=== PATIENT | female | born 1960 | race Caucasian/White ===

== ENCOUNTER 2017-01-24 19:16 | Emergency (ER) | payer OTHER ==
[~2017-01-24] VITALS: Ht 161.3 cm; Wt 111.2 kg
[2017-01-24 19:23] VITALS: TEMP 36.6; Ht 161.3 cm; Wt 111.2 kg
--- NOTE | 2017-01-24 19:41 | EMERGENCY ROOM VISIT NOTE ---
History Report prepared by Mo: Alejandra Carcamo Under the Supervision of: Dr. Raudel Buckley M.D. First contact with patient: 19:28 Chief Complaint: GI ASSESSMENT Stated Complaint: CHOKED ON FOOD, VOMITED BLOOD, SORE THROAT History of Present Illness The patient is a 56 year old female who presents to the Emergency Room with complaints of gastrointestinal problems occurring shortly prior to arrival. The patient states that she was eating dinner, ate a large piece of fish, went to take a drink to help swallow and tried to cough up the food. A friend performed the Heimlich maneuver on her and went she went to vomit, she threw up blood. The patient states that the blood did not fill up the toilet bowl. She now complains that it is painful to swallow but is not having any abdominal pain. She reports that she is not on any blood thinners. Source of History: patient Onset: prior to arrival Position: abdomen (GI problems) Quality: other (choking) Associated Symptoms: + vomiting (blood), No abdominal pain Review of Systems See HPI for pertinent positives & negatives. A total of 10 systems reviewed and were otherwise negative. Past Medical & Surgical Medical Problems: (1) Hypertension (2) Pneumonia Family History Diabetes mellitus FH: lung disease FHx: cancer FHx: heart disease Hypertension Social History Smoking Status: Never Smoker Marital Status: Housing Status: lives with significant other Current/Historical Medications Scheduled Duloxetine Hcl (Cymbalta), 60 MG PO DAILY Levothyroxine Sodium (Synthroid), 50 MCG PO DAILY Telmisartan-Hydrochlorothiazid (Micardis Hct 80MG/12.5MG), 1 TAB PO DAILY Vitamin B Cmplx/Vitc/Folic Ac (Nephrocaps), 1 CAP PO DAILY Vitamin E (Vitamin E 400 Iu), 400 INTER.UNIT PO DAILY Scheduled PRN Ibuprofen (Advil), 400-800 MG PO Q6H PRN for Headache or Pain Allergies Coded Allergies: Penicillins (Verified Allergy, Mild, Hives, 01/24/17) Physical Exam Vital Signs Date Time Temp Pulse Resp B/P (MAP) Pulse Ox O2 Delivery O2 Flow Rate FiO2 01/24/17 21:11 84 16 136/100 94 01/24/17 19:23 36.6 84 20 159/84 96 Room Air Physical Exam GENERAL: Patient is well appearing and in minimal distress. HEENT: No acute trauma, normocephalic atraumatic, mucous membranes moist, no nasal congestion, no scleral icterus. NECK: No stridor, no adenopathy, no meningismus, trachea is midline. LUNGS: No dyspnea. Clear to auscultation and equal bilaterally. No wheeze, no rhonchi. HEART: Regular rate and rhythm. No murmurs, rubs, gallops appreciated. ABDOMEN: Soft, nontender, bowel sounds positive, no masses appreciated, no peritonitis. BACK: No midline tenderness, no CVA tenderness EXTREMITIES: Normal motion all extremities, no cyanosis, no edema. NEUROLOGIC: Alert and oriented, no acute motor or sensory deficits, no focal weakness, cranial nerves grossly intact. SKIN: No rash, no jaundice, no diaphoresis. Medical Decision & Procedures ER Provider Diagnostic Interpretation: X ray results are stated below per my interpretation and the radiologist's interpretation. CHEST ONE VIEW PORTABLE CLINICAL HISTORY: Food bolus CHOKING EPISODE. VOMITING BLOOD. COMPARISON STUDY: No previous studies for comparison. FINDINGS: The cardiac and mediastinal contours are normal. There is no evidence of focal pulmonary consolidation. There is no evidence of failure. No pleural effusions are visualized.[ No pneumomediastinum is visualized. There is no pneumothorax. IMPRESSION: No active disease in the chest. Electronically signed by: Josh Herrera M.D. 01/24/2017 8:16 PM Dictated Date/Time: 01/24/2017 8:15 PM Medications Administered Medications (Trade) Dose Ordered Sig/Timoteo Route Start Time Stop Time Status Last Admin Dose Admin Ranitidine HCl (zANTac SYRUP) 150 mg NOW ONCE PO 01/24/17 19:45 01/24/17 19:46 DC 01/24/17 19:47 150 MG Lidocaine HCl (Viscous Lidocaine 2% Soln) 20 ml STK-MED ONCE .ROUTE 01/24/17 19:45 01/24/17 19:46 DC 01/24/17 19:47 20 ML Al Hydroxide/Mg Hydroxide (Maalox Susp) 30 ml STK-MED ONCE .ROUTE 01/24/17 19:45 01/24/17 19:46 DC 01/24/17 19:47 30 ML Pantoprazole Sodium (Protonix Tab) 40 mg NOW STAT PO 01/24/17 20:53 01/24/17 20:54 DC 01/24/17 21:10 40 MG ED Course 1928: The patient was evaluated in room C4. A complete history and physical exam was performed. 1941: Ordered Gi Cocktail 24 ml PO. 1944: Ordered Maalox Susp 30 ml, Lidocaine HCl 20 ml, Ranitidine HCl 150 mg PO. 2026: The patient is feeling better but does have a sore throat when she swallows. 2033: Discussed the patient's case with Dr. Fletcher. The patient will be evaluated for further treatment and disposition. 2052: Ordered Pantoprazole Sodium 40 mg PO. 2054: The patient is happy with the plan and will follow up with Dr. Fletcher or his colleague in the morning. 2099: Reevaluated the patient. Discussed results and discharge instructions: She verbalized understanding and agreement. The patient is ready for discharge. Medical Decision Blood pressure screening: Patient was found to have an elevated blood pressure and was referred to their primary doctor for recheck and further treatment. Medication Reconciliation: I attest that I have personally reviewed the patient 's current medication list. 56 yr old pleasant female with what sounds like she has been dealing with esophageal stricture for quite some time. Tonight with food stuck in esophagus and apparently required hymlic to remove it. Denies any respiratory issues with this. Admits afterwards she vomited a globul of blood, not filling toilet. Continued vague discomfort though no respiratory issues nor severe pain. No further vomiting. Denies black/bloody stools. Denies blood thinner use. GI cocktail with some improvement. Zantac and Protonix given. Xray without pleural effusion nor evidence of mediastinal air. She is stable and in no distress. I discussed with GI and plan to do endoscopy tomorrow. As stable patient prefers to have this done as outpatient which I think is reasonable and GI on board with this. Patient prefers not to have obs status in hospital to have endoscopy done. Reviewed at length symptoms requiring return. Patient comfortable with plan. Case Management asked to follow up to make sure things go smoothly tomorrow. Consults Time Called: 2014 Consulting Physician: Dr. Fletcher Returned Call: [phone] Discussed the patient's case. The patient will be evaluated for further treatment and disposition. Impression Primary Impression: Esophageal obstruction due to food impaction Additional Impression: Lynn-Duran tear Scribe Attestation The scribe's documentation has been prepared under my direction and personally reviewed by me in its entirety. I confirm that the note above accurately reflects all work, treatment, procedures, and medical decision making performed by me. Departure Information Dispostion Home / Self-Care Referrals Rafita Fletcher MD Patient Instructions My [facility] Additional Instructions Follow up Dr Fletcher of Gastroenterology tomorrow with plan for Endoscopy. Call his office in the morning to determine which time you will be going there. [phone] Do not eat or drink anything after midnight tonight. Return immediately if increased pain, vomiting, passing out, fevers or other concerns. Problem Qualifiers
[2017-01-24] MEDS ORDERED: GI COCKTAIL PO STA (19:42)
[2017-01-24] MEDS ORDERED: RANITIDINE HCL SYRUP 150 MG/10 ML UDC PO ONE (19:45)
[2017-01-24] MEDS ORDERED: ALUMINUM/MAGNESIUM SUSP 30 ML UDC ONE (19:45)
[2017-01-24] MEDS ORDERED: LIDOCAINE HCL 2% VISC SOLN 20 ML UDC ONE (19:45)
[2017-01-24] MEDS ORDERED: VITA400C3 PO (20:08)
[2017-01-24] MEDS ORDERED: TELM80TA4 PO (20:08)
[2017-01-24] MEDS ORDERED: DULO60CA44 PO (20:08)
[2017-01-24] MEDS ORDERED: LEVO50TA PO (20:08)
[2017-01-24] MEDS ORDERED: IBUP-1050 PO (20:08)
[2017-01-24] MEDS ORDERED: B-CO1CAP17 PO (20:08)
--- NOTE | 2017-01-24 20:17 | DIAGNOSTIC IMAGING REPORT ---
CHEST ONE VIEW PORTABLE CLINICAL HISTORY: Food bolus CHOKING EPISODE. VOMITING BLOOD. COMPARISON STUDY: No previous studies for comparison. FINDINGS: The cardiac and mediastinal contours are normal. There is no evidence of focal pulmonary consolidation. There is no evidence of failure. No pleural effusions are visualized.[ No pneumomediastinum is visualized. There is no pneumothorax. IMPRESSION: No active disease in the chest. Electronically signed by: Josh Herrera M.D. 01/24/2017 8:16 PM Dictated Date/Time: 01/24/2017 8:15 PM
[2017-01-24] MEDS ORDERED: PANTOprazole SOD 40 MG TAB PO STA (20:53)
[2017-01-24 21:11] VITALS: BP 136/100; PULSE 84; O2SAT 94
[2017-01-25] MEDS ORDERED: LIDOCAINE HCL 2% 2 ML VIAL (20MG/ML) ONE (11:02)
[2017-01-25] MEDS ORDERED: PROPOFOL IV EMULSION 10 MG/ML 20 ML VIAL IV ONE (11:02)
== END 2017-01-24 21:12 | disposition home or self-care (01) ==
LOC: C.EDB 19:20 → C.EDC 21:12
DX: T18.128A Food in esophagus causing other injury, initial encounter (principal); K22.6 Gastro-esophageal laceration-hemorrhage syndrome; X58.XXXA Exposure to other specified factors, initial encounter; I10 Essential (primary) hypertension; Z87.01 Personal history of pneumonia (recurrent); Z83.3 Family history of diabetes mellitus; Z80.9 Family history of malignant neoplasm, unspecified; Z82.49 Family history of ischemic heart disease and other diseases of the circulatory system; Z79.899 Other long term (current) drug therapy

== ENCOUNTER → 2017-01-25 | Day surgery (SDC) | payer OTHER ==
[~2017-01-25] VITALS: Ht 161.3 cm; Wt 108.2 kg
[~2017-01-25] MED LIST: B-CO1CAP17 PO; DULO60CA44 PO; IBUP-1050 PO; LEVO50TA PO; LIDOCAINE HCL 2% 2 ML VIAL (20MG/ML) INFIL ONE; PROPOFOL IV EMULSION 10 MG/ML 20 ML VIAL IV ONE; SODIUM CHLORIDE 0.9% 500ML 500 ML IV ONE; TELM80TA4 PO; VITA400C3 PO
[2017-01-25 10:32] VITALS: Ht 161.3 cm; Wt 108.2 kg
--- NOTE | 2017-01-25 11:04 | Endo History and Physical ---
History & Physical Date of Service: Jan 25, 2017. Chief Complaint: dysphagia Referring Physician: Emily History of Present Illness Food bolus impaction, cleared spontaneously. Five year history of intermittent dysphagia for solids. Past Surgical History Hx Cardiac Surgery: No Hx Internal Defibrillator: No Hx Pacemaker: No Hx Abdominal Surgery: No Hx of Implantable Prosthesis: No Hx Post-Op Nausea and Vomiting: No Hx Cancer Surgery: Yes (breast lumpectomy) Hx Thoracic Surgery: No Hx Orthopedic: No Hx Urinary Tract Surgery: No Family History Polyp Social History Smoking Status: Never Smoker Hx Substance Use: No Hx Alcohol Use: Yes (occassional) Allergies Coded Allergies: Penicillins (Verified Allergy, Mild, Hives, 01/25/17) Current Medications Reported Home Medications Medications Dose Route/Sig Max Daily Dose Days Date Category Vitamin E 400 Iu (Vitamin E) 400 Unit Cap 400 Inter.unit PO DAILY 01/24/17 Reported Nephrocaps (Vitamin B Complex/Vit C/Folic Acid) Cap 1 Cap PO DAILY 90 01/24/17 Reported Advil (Ibuprofen) 200 Mg Tab 400-800 Mg PO Q6H PRN 01/24/17 Reported Cymbalta (Duloxetine Hcl) 60 Mg Cap 60 Mg PO DAILY 01/24/17 Reported Synthroid (Levothyroxine Sodium) 50 Mcg Tab 50 Mcg PO DAILY 01/24/17 Reported Micardis Hct 80MG/12.5MG (Telmisartan-Hydrochlorothiazid) 1 Tab Tab 1 Tab PO DAILY 01/24/17 Reported Vital Signs Weight (Kilograms): 108.18 Height (Feet): 5 Height (Inches): 3.5 Date Time Temp Pulse Resp B/P (MAP) Pulse Ox O2 Delivery O2 Flow Rate FiO2 01/25/17 10:51 37.4 82 18 103/56 (72) 93 Room Air Physical Exam General Appearance: WD/WN, no apparent distress Respiratory/Chest: Auscultation: breath sounds normal, no wheezing Cardiovascular: Heart Auscultation: RRR, no murmurs Abdomen: Inspection & Palpation: soft, no tenderness, guarding & rebound Assessment and Plan EGD with possible dilation.
--- NOTE | 2017-01-25 11:40 | GI REPORT ---
Procedure Date: 01/25/2017 11:14 AM Procedure: Upper GI endoscopy Indications: Dysphagia Patient Profile: This is a 56 year old female with intermittent dysphagia for solids for five years, presented to ED last night with food bolus impaction that she was able to retch up. She noted blood with the bolus. No recent hearburn. Medicines: Monitored Anesthesia Care Complications: No immediate complications. Estimated blood loss: None. Estimated Blood Loss: Estimated blood loss: none. Procedure: Pre-Anesthesia Assessment: - Prior to the procedure, a History and Physical was performed, and patient medications, allergies and sensitivities were reviewed. The patient's tolerance of previous anesthesia was reviewed. - ASA Grade Assessment: II - A patient with mild systemic disease. After obtaining informed consent, the endoscope was passed under direct vision. Throughout the procedure, the patient's blood pressure, pulse, and oxygen saturations were monitored continuously. The scope was introduced through the mouth, and advanced to the third part of duodenum. The upper GI endoscopy was accomplished with ease. The patient tolerated the procedure well. Findings: One linear esophageal ulcer with no bleeding and no stigmata of recent bleeding was found 26 to 32 cm from the incisors. One moderate benign-appearing, intrinsic stenosis was found in the lower third of the esophagus. This measured 3 cm (in length) and was traversed. A guidewire was placed and the scope was withdrawn. Dilation was performed with an [place] dilator with mild resistance at 45 Fr. Biopsies were taken with a cold forceps for histology. The Z-line was regular and was found 40 cm from the incisors. A small hiatus hernia was present. The stomach was normal. The examined duodenum was normal. Impression: - Non-bleeding esophageal ulcer. - Benign-appearing esophageal stenosis. Dilated. Biopsied. - Z-line regular, 40 cm from the incisors. - Small hiatus hernia. - Normal stomach. - Normal examined duodenum. Recommendation: - Use Prilosec (omeprazole) 20 mg PO BID. - Repeat the upper endoscopy in 6 weeks to check healing and for retreatment. - Discharge patient to home (with escort). Lazarus Pollard M.D. Lazarus Pollard MD 01/25/2017 11:39:00 AM This report has been signed electronically. Note Initiated On: 01/25/2017 11:14 AM I attest to the content of the Intraoperative Record and orders documented therein, exceptions below
--- NOTE | 2017-01-25 11:48 | Discharge Instructions ---
Endoscopy Patient Instructions Date / Procedure(s) Performed Jan 25, 2017. EGD Allergy Information Coded Allergies: Penicillins (Verified Allergy, Mild, Hives, 01/25/17) Discharge Date / Findings Jan 25, 2017. Esophageal ulcer and stenosis. Esophagus dilated. Biopsies obtained. Medication Instructions Restart Stopped Medication(s): Restart medications. Start omeprazole 20 mg twice a day before breakfast and before supper. Provider Instructions Activity Restrictions - No exercising or heavy lifting for 24 hours. - Do not drink alcohol the day of the procedure. - Do not drive a car or operate machinery until the day after the procedure. - Do not make any important decisions or sign important papers in 24 hours after the procedure. Following Day: - Return to full activity which may include returning to work/school. Diet Start your diet with liquids and light foods (jello, soup, juice, toast). Then eat your usual diet if not nauseated. Treatment For Common After Affects For mild abdominal pain, bloating, or excessive gas: - Rest - Eat lightly - Lie on right side Follow-Up Information Follow-up with Emily as scheduled Repeat EGD in six weeks. Anesthesia Information What You Should Know You have had a procedure that required some medicine to reduce anxiety and discomfort. This treatment is called moderate sedation. After receiving the treatment, you may be sleepy, but you will be able to breathe on your own. The effects of the treatment may last for several hours. Follow these instructions along with Activity/Diet recommendations noted above: * Do NOT do anything where dizziness or clumsiness would be dangerous. * Rest quietly at home today, then you can be up and about tomorrow. * Have a responsible person stay with you the rest of today. * You may have had an I.V. today. If so, you may take the dressing off later today. Recommendations Call your doctor if: * Trouble breathing * Continuous vomiting for more than 24 hours * Temperature above 101 degrees * Severe abdominal pain or bloating * Pain not relieved by pain medicine ordered * There is increased drainage or redness from any incision * A large amount of rectal bleeding greater than 2-3 tablespoons. (If you had a polyp/s removed or have hemorrhoids, a small amount of blood - from the rectum is to be expected.) * You have any unanswered questions or concerns. IN THE EVENT OF A SERIOUS EMERGENCY, GO TO THE NEAREST EMERGENCY ROOM Your discharge instructions were prepared by provider Lazarus Pollard. Patient Instructions Signature Page Rebeka Lara Patient (or Guardian) Signature/Date: I have read and understand the instructions given to me by my caregivers. Caregiver/RN/Doctor Signature/Date: The above-named patient and/or guardian has received patient instructions on this date. + Original Patient Signature Page (only) stays with chart. Please make copy for patient.
[2017-01-25 12:14] VITALS: BP 126/72; PULSE 70; O2SAT 97
--- NOTE | 2017-01-25 14:14 | Anesthesiology Progress Note ---
Anesthesia Post Op Note Date & Time Jan 25, 2017 at 14:13 Vital Signs Pain Intensity: 5 Vital Signs Past 12 Hours Date Time Temp Pulse Resp B/P (MAP) Pulse Ox O2 Delivery O2 Flow Rate FiO2 01/25/17 12:14 70 20 126/72 (90) 97 Room Air 01/25/17 11:58 71 20 128/74 (92) 94 Room Air 01/25/17 11:44 77 20 99/65 (76) 95 Room Air 01/25/17 10:51 37.4 82 18 103/56 (72) 93 Room Air Notes Mental Status: alert / awake / arousable, participated in evaluation Pt Amnestic to Procedure: Yes Nausea / Vomiting: adequately controlled Pain: adequately controlled Airway Patency, RR, SpO2: stable & adequate BP & HR: stable & adequate Hydration State: stable & adequate Anesthetic Complications: no major complications apparent
== END | disposition home or self-care (01) ==
LOC: C.GI 10:11
PROVIDERS: ATTEND Internal Medicine Gastroenterology
DX: R13.10 Dysphagia, unspecified (principal); K20.9 Esophagitis, unspecified; K22.10 Ulcer of esophagus without bleeding; K22.2 Esophageal obstruction; K44.9 Diaphragmatic hernia without obstruction or gangrene